=== PATIENT | female | born 1960 | race Caucasian/White ===

== ENCOUNTER 2024-07-15 03:30 | Emergency (ER) | payer MEDICARE ==
[~2024-07-15] VITALS: Ht 157.5 cm; Wt 44.8 kg
[2024-07-15 03:31] VITALS: BP 153/81; PULSE 78; TEMP 97.7; O2SAT 95
--- NOTE | 2024-07-15 03:46 | Physician Documentation ---
History of Present Illness ~ Chief Complaint: Mechanical Fall Stated Complaint: FALL Time Seen by MD: 03:42 Source: patient, family HPI Patient tripped and fell landing on her left shoulder. No headache no loss of consciousness no head strike Medication Reconciliation Allergies: Coded Allergies: No Known Allergies (Unverified , 07/15/24) Review of Systems All Other Systems at this time: Reviewed and Negative Neurological: Denies: headache Physical Exam Vital Signs: Temperature: 97.7, Heart Rate: 78, Respiratory Rate: 14, BP: 153/81, Pulse Oximetry: 95, Weight: 44.800 Physical Exam C-spine nontender head atraumatic left shoulder range of motion intact but limited by discomfort, deformity over distal clavicle Distal sensation intact pulses intact Progress Results/Orders Results/Orders Orders - SANIA WARD MD Shoulder, Complete (Min 2 Vws) (07/15/24 04:30) * Arm Sling To Be Placed Overn (07/15/24 04:59) Completed Orders - SNAIA WARD MD Oxycodone Immed Release Tablet (Oxy Ir T (07/15/24 03:45) Shoulder, Complete (Min 2 Vws) (07/15/24 04:30) Ketorolac Trometh 15mg/Ml Vial (Toradol (07/15/24 05:40) Oxycodone Immed Release Tablet (Oxy Ir T (07/15/24 05:40) Acetaminophen 325mg Tablet (Tylenol Tabl (07/15/24 05:40) Medications Received in ER Medications (Trade) Dose Ordered Sig/Ruth Ann Route PRN Reason Start Time Stop Time Status Last Admin Dose Admin (OXY IR tablet) 5 mg ONCE ONCE PO 07/15/24 03:45 07/15/24 03:46 DC 07/15/24 04:11 5 MG (Toradol injection) 15 mg ONCE ONCE IM 07/15/24 05:40 07/15/24 05:41 DC 07/15/24 05:57 15 MG (OXY IR tablet) 5 mg ONCE ONCE PO 07/15/24 05:40 07/15/24 05:47 DC 07/15/24 05:56 5 MG (Tylenol tablet) 975 mg ONCE ONCE PO 07/15/24 05:40 07/15/24 05:41 DC 07/15/24 05:56 975 MG Vital Signs 07/15/24 07/15/24 07/15/24 07/15/24 03:31 04:11 05:56 05:57 Temp 97.7 Pulse 78 Resp 14 22 16 16 B/P (MAP) 153/81 Pulse Ox 95 EKG/XRAY/CT/US/VASC/MRI Bone/Soft Tissue X-Ray (Ext.) : Additional Comment X-ray independently interpreted by myself shows AC separation no clavicle fracture glenohumeral joint intact Medical Decision Making Additional Comment Shoulder separation shoulder dislocation humeral fracture Departure Disposition: HOME / SELF CARE / HOMELESS Impression: Primary Impression: AC separation Qualified Codes: S43.102A - Unspecified dislocation of left acromioclavicular joint, initial encounter Additional Instructions: Use the sling for comfort. Take ibuprofen and Tylenol and morphine for breakthrough pain. Return to the emergency department if you develop any numbness or tingling or new weakness in your hand otherwise follow up with Orthopedic surgery Referrals: NO PRIMARY CARE PROVIDER (PCP) Prescriptions Oxycodone HCl (Oxycodone HCl) 5 Mg Capsule 1 CAP PO QID PRN PRN for pain for 10 Days, #10 CAP 0 Refills Prov: SANIA WARD MD 07/15/24 Signature Scribe Signature: eveline Attestation: SANIA Coker MD July 15, 2024 03:46
[2024-07-15] MEDS: oxyCODONE IR 5mg (immed. release) tablet PO ONE ×2 (04:11→05:56)
[2024-07-15] MEDS ORDERED: OXYC-658 PO (05:02)
--- NOTE | 2024-07-15 05:24 | RADIOLOGY REPORT ---
CLINICAL INDICATION: shoulder injury TECHNIQUE: DI SHOULDER, COMPLETE (MIN 2 VWS) Comparison: None FINDINGS/IMPRESSION: : The humeral head is mildly high riding. Moderate glenohumeral joint space narrowing and marginal ost eophytosis noted. Scattered punctate radiodense foreign bodies are superimposed on the humeral head. Grade 3 acromioclavicular separation with cephalad subluxation of the distal clavicle. Hypertrophic a rthropathic changes noted. The visualized portions of the left lung are clear. No definite acute rib fractures.
[2024-07-15] MEDS ORDERED: MORP15TA PO (05:43)
[2024-07-15] MEDS: acetaminophen 325mg tablet PO ONE (05:56)
[2024-07-15] MEDS: ketorolac trometh 15mg/ml vial 15 MG/ML ML IM ONE (05:57)
[2024-07-15] MEDS ORDERED: OXYC5CAP22 PO (06:04)
[2024-07-15 06:13] VITALS: RESP 16
== END 2024-07-15 06:23 | disposition home or self-care (01) ==
LOC: ER 03:30
DX: S43.102A Unspecified dislocation of left acromioclavicular joint, initial encounter (principal); W01.0XXA Fall on same level from slipping, tripping and stumbling without subsequent striking against object, initial encounter; Y93.89 Activity, other specified; Y92.89 Other specified places as the place of occurrence of the external cause; Y99.8 Other external cause status
CPT/HCPCS: 73030; 96372; 99284; A4565; J1885